=== PATIENT | female | born 1950 | race Caucasian/White ===

== ENCOUNTER 2022-07-01 10:48 | Outpatient (REF) | payer MEDICARE, SELFPAY ==
[2022-07-01 13:58] LABS: MANUAL DIFF FLAG NO
[2022-07-01 14:00] LABS: Appearance Urine HAZY; Color Urine YELLOW; Glucose Urine UA NEG (NEG); Leukocyte Esterase Urine TRACE (NEG); Nitrite Urine NEG (NEG); Urine Blood NEG (NEG); Urine Ketones NEG (NEG); Urine Protein NEG (NEG-TRACE)
[2022-07-01 14:06] LABS: Basophils Absolute Auto 0.1 X10*3/uL (0.0-0.2); Basophils Percent Auto 0.7 % (0-2); Eosinophils Absolute Auto 0.3 X10*3/uL (0.0-0.4); Eosinophils Percent Auto 2.8 % (0-4); Hematocrit 42.8 % (37.0-47.0); Hemoglobin 13.8 g/dl (12.0-16.0); Imm Gran Abs Auto 0.04 X10*3/uL (0.00-0.03); Imm Gran Pct Auto 0.3 % (0.0-0.4); Lymphocytes Absolute Auto 1.8 X10*3/uL (1.2-4.9); Lymphocytes Percent Auto 15.5 % (20-40); Mean Corpuscular HGB Conc 32.2 g/dl (31.0-35.0); Mean Corpuscular Hemoglobin 29.4 pg (27.0-33.0); Mean Corpuscular Volume 91.3 fL (80.0-98.0); Monocytes Absolute Auto 0.9 X10*3/uL (0.1-1.2); Monocytes Percent Auto 8.1 % (2-11); Neutrophils Absolute Auto 8.4 x10*3/uL (2.0-8.3); Neutrophils Percent Auto 72.6 % (45-73); Platelet Count 358 X10*3/uL (160-400); Red Blood Count 4.69 X10*6/uL (4.20-5.50); Red Cell Distribution Width 12.9 % (11.0-16.0); White Blood Count 11.5 X10*3/uL (4.8-10.8)
[2022-07-01 14:15] LABS: Estimated Average Glucose 123 mg/dL; Hemoglobin A1C 149.4037 umol/L; Hemoglobin A1c % 5.9 %
[2022-07-01 14:15] LABS: RBC Urine 0-2 /HPF (0); Squamous Epithelial Cell Urine 2+ /LPF; WBC Urine 0 /HPF (0-4)
[2022-07-01 14:22] LABS: Alanine Aminotransferase 12 U/L (0-31); Albumin Level 4.3 g/dL (3.5-5.0); Alkaline Phosphatase 70 U/L (39-117); Anion Gap 16 (12-20); Aspartate Amino Transferase 20 U/L (5-31); Bilirubin Total 0.3 mg/dL (0.0-1.0); Blood Urea Nitrogen 17 mg/dL (9-16); Calcium 9.8 mg/dL (8.4-10.2); Carbon Dioxide 26 mmol/L (22-29); Chloride 103 mmol/L (96-108); Estimated Glomerular Filt Rate > 60; Glucose Random 121 mg/dL (60-115); Potassium 4.5 mmol/L (3.3-5.1); Sodium 140 mmol/L (135-145); Total Protein 7.4 g/dL (6.5-8.0)
== END 2022-07-01 10:49 | disposition home or self-care (01) ==
LOC: HO.HMGCLDS 10:48
PROVIDERS: PCP Nurse Practitioner Family; Visit Provider Nurse Practitioner Family
DX: Z01.818 Encounter for other preprocedural examination (principal)
CPT/HCPCS: 36415; 80053; 81001; 81003; 83036; 85025

== ENCOUNTER 2022-07-08 11:11 | Outpatient (REF) | payer MEDICARE, SELFPAY ==
[2022-07-08 13:54] LABS: MANUAL DIFF FLAG NO
[2022-07-08 14:02] LABS: Basophils Absolute Auto 0.1 X10*3/uL (0.0-0.2); Basophils Percent Auto 0.7 % (0-2); Eosinophils Absolute Auto 0.3 X10*3/uL (0.0-0.4); Eosinophils Percent Auto 2.5 % (0-4); Hematocrit 41.8 % (37.0-47.0); Hemoglobin 13.5 g/dl (12.0-16.0); Imm Gran Abs Auto 0.05 X10*3/uL (0.00-0.03); Imm Gran Pct Auto 0.4 % (0.0-0.4); Lymphocytes Absolute Auto 1.7 X10*3/uL (1.2-4.9); Lymphocytes Percent Auto 14.5 % (20-40); Mean Corpuscular HGB Conc 32.3 g/dl (31.0-35.0); Mean Corpuscular Hemoglobin 29.6 pg (27.0-33.0); Mean Corpuscular Volume 91.7 fL (80.0-98.0); Monocytes Absolute Auto 0.9 X10*3/uL (0.1-1.2); Monocytes Percent Auto 7.3 % (2-11); Neutrophils Absolute Auto 8.7 x10*3/uL (2.0-8.3); Neutrophils Percent Auto 74.6 % (45-73); Platelet Count 342 X10*3/uL (160-400); Red Blood Count 4.56 X10*6/uL (4.20-5.50); Red Cell Distribution Width 13.1 % (11.0-16.0); White Blood Count 11.7 X10*3/uL (4.8-10.8)
== END 2022-07-08 11:12 | disposition home or self-care (01) ==
LOC: HO.HMGCLDS 11:11
PROVIDERS: PCP Nurse Practitioner Family; Visit Provider Nurse Practitioner Family
DX: Z01.818 Encounter for other preprocedural examination (principal); D72.829 Elevated white blood cell count, unspecified
CPT/HCPCS: 36415; 85025

== ENCOUNTER 2022-07-13 10:50 | Outpatient (REF) | payer MEDICARE, SELFPAY ==
--- NOTE | ~2022-07-13 | XR_ITS ---
EXAMINATION: XR CHEST CLINICAL INFORMATION: Elevated white blood cell count COMPARISON: None TECHNIQUE: 2 views of the chest were obtained. FINDINGS: Cardiac silhouette is normal in size. The lungs are well aerated. There is no lobar consolidation. No pleural effusion or pneumothorax. Scoliotic and degenerative changes of the spine. XR/XR chest 2V IMPRESSION: No acute pulmonary pathology.
[2022-07-13 14:04] LABS: MANUAL DIFF FLAG NO
[2022-07-13 14:22] LABS: Basophils Absolute Auto 0.1 X10*3/uL (0.0-0.2); Basophils Percent Auto 0.8 % (0-2); Eosinophils Absolute Auto 0.3 X10*3/uL (0.0-0.4); Eosinophils Percent Auto 2.3 % (0-4); Hematocrit 45.5 % (37.0-47.0); Hemoglobin 14.6 g/dl (12.0-16.0); Imm Gran Abs Auto 0.04 X10*3/uL (0.00-0.03); Imm Gran Pct Auto 0.3 % (0.0-0.4); Lymphocytes Absolute Auto 2.2 X10*3/uL (1.2-4.9); Lymphocytes Percent Auto 17.1 % (20-40); Mean Corpuscular HGB Conc 32.1 g/dl (31.0-35.0); Mean Corpuscular Hemoglobin 29.1 pg (27.0-33.0); Mean Corpuscular Volume 90.8 fL (80.0-98.0); Mean Platelet Volume 9.9 fL (9.4-12.3); Monocytes Percent Auto 8.3 % (2-11); Neutrophils Absolute Auto 8.9 x10*3/uL (2.0-8.3); Neutrophils Percent Auto 71.2 % (45-73); Platelet Count 378 X10*3/uL (160-400); Red Blood Count 5.01 X10*6/uL (4.20-5.50); White Blood Count 12.6 X10*3/uL (4.8-10.8)
[2022-07-13 14:30] LABS: Alanine Aminotransferase 12 U/L (0-31); Albumin Level 4.5 g/dL (3.5-5.0); Alkaline Phosphatase 69 U/L (39-117); Anion Gap 15 (12-20); Aspartate Amino Transferase 19 U/L (5-31); Bilirubin Total 0.4 mg/dL (0.0-1.0); Blood Urea Nitrogen 21 mg/dL (9-16); Calcium 10.3 mg/dL (8.4-10.2); Carbon Dioxide 29 mmol/L (22-29); Chloride 101 mmol/L (96-108); Estimated Glomerular Filt Rate > 60; Glucose Random 125 mg/dL (60-115); Potassium 4.4 mmol/L (3.3-5.1); Sodium 141 mmol/L (135-145); Total Protein 7.5 g/dL (6.5-8.0)
== END 2022-07-13 10:51 | disposition home or self-care (01) ==
LOC: HO.HMGCX 10:50
PROVIDERS: PCP Nurse Practitioner Family; Visit Provider Nurse Practitioner Family
DX: Z01.818 Encounter for other preprocedural examination (principal); D72.829 Elevated white blood cell count, unspecified
CPT/HCPCS: 36415; 71046; 80053; 85025

== ENCOUNTER 2022-07-22 10:01 | Outpatient (REF) | payer MEDICARE, SELFPAY ==
[2022-07-22 11:22] LABS: MANUAL DIFF FLAG NO
[2022-07-22 11:28] LABS: Basophils Absolute Auto 0.1 X10*3/uL (0.0-0.2); Basophils Percent Auto 0.8 % (0-2); Eosinophils Absolute Auto 0.3 X10*3/uL (0.0-0.4); Hematocrit 41.8 % (37.0-47.0); Hemoglobin 13.9 g/dl (12.0-16.0); Imm Gran Abs Auto 0.03 X10*3/uL (0.00-0.03); Imm Gran Pct Auto 0.3 % (0.0-0.4); Lymphocytes Absolute Auto 2.2 X10*3/uL (1.2-4.9); Lymphocytes Percent Auto 19.7 % (20-40); Mean Corpuscular HGB Conc 33.3 g/dl (31.0-35.0); Mean Corpuscular Hemoglobin 29.6 pg (27.0-33.0); Mean Corpuscular Volume 89.1 fL (80.0-98.0); Mean Platelet Volume 9.6 fL (9.4-12.3); Monocytes Absolute Auto 1.1 X10*3/uL (0.1-1.2); Monocytes Percent Auto 9.4 % (2-11); Neutrophils Absolute Auto 7.5 x10*3/uL (2.0-8.3); Neutrophils Percent Auto 66.8 % (45-73); Platelet Count 336 X10*3/uL (160-400); Red Blood Count 4.69 X10*6/uL (4.20-5.50); Red Cell Distribution Width 12.9 % (11.0-16.0); White Blood Count 11.2 X10*3/uL (4.8-10.8)
[2022-07-22 11:48] LABS: Alanine Aminotransferase 11 U/L (0-31); Albumin Level 4.1 g/dL (3.5-5.0); Alkaline Phosphatase 70 U/L (39-117); Anion Gap 17 (12-20); Aspartate Amino Transferase 16 U/L (5-31); Bilirubin Total 0.3 mg/dL (0.0-1.0); Blood Urea Nitrogen 20 mg/dL (9-16); Calcium 9.3 mg/dL (8.4-10.2); Carbon Dioxide 23 mmol/L (22-29); Chloride 103 mmol/L (96-108); Estimated Glomerular Filt Rate > 60; Glucose Random 120 mg/dL (60-115); Potassium 4.4 mmol/L (3.3-5.1); Sodium 139 mmol/L (135-145); Total Protein 7.1 g/dL (6.5-8.0)
== END 2022-07-22 10:02 | disposition home or self-care (01) ==
LOC: HO.HMGCLDS 10:01
PROVIDERS: PCP Nurse Practitioner Family; Visit Provider Nurse Practitioner Family
DX: D72.829 Elevated white blood cell count, unspecified (principal)
CPT/HCPCS: 36415; 80053; 85025

== ENCOUNTER 2022-08-04 10:17 | Outpatient (REF) | payer MEDICARE, SELFPAY ==
[2022-08-04 11:04] LABS: MANUAL DIFF FLAG NO
[2022-08-04 11:26] LABS: Basophils Absolute Auto 0.1 X10*3/uL (0.0-0.2); Eosinophils Absolute Auto 0.3 X10*3/uL (0.0-0.4); Eosinophils Percent Auto 2.7 % (0-4); Hematocrit 42.8 % (37.0-47.0); Hemoglobin 13.9 g/dl (12.0-16.0); Imm Gran Abs Auto 0.03 X10*3/uL (0.00-0.03); Imm Gran Pct Auto 0.3 % (0.0-0.4); Lymphocytes Absolute Auto 2.3 X10*3/uL (1.2-4.9); Lymphocytes Percent Auto 19.7 % (20-40); Mean Corpuscular HGB Conc 32.5 g/dl (31.0-35.0); Mean Corpuscular Hemoglobin 29.8 pg (27.0-33.0); Mean Corpuscular Volume 91.6 fL (80.0-98.0); Mean Platelet Volume 9.3 fL (9.4-12.3); Monocytes Absolute Auto 0.9 X10*3/uL (0.1-1.2); Monocytes Percent Auto 7.5 % (2-11); Neutrophils Absolute Auto 8.1 x10*3/uL (2.0-8.3); Neutrophils Percent Auto 68.8 % (45-73); Platelet Count 354 X10*3/uL (160-400); Red Blood Count 4.67 X10*6/uL (4.20-5.50); Red Cell Distribution Width 13.4 % (11.0-16.0); White Blood Count 11.7 X10*3/uL (4.8-10.8)
== END 2022-08-04 10:18 | disposition home or self-care (01) ==
LOC: HO.HMGCLDS 10:17
PROVIDERS: PCP Nurse Practitioner Family; Visit Provider Nurse Practitioner Family
DX: D72.829 Elevated white blood cell count, unspecified (principal)
CPT/HCPCS: 36415; 85025

== ENCOUNTER 2022-09-22 11:01 | Outpatient (REF) | payer MEDICARE, SELFPAY ==
[2022-09-22 14:09] LABS: MANUAL DIFF FLAG NO
[2022-09-22 14:17] LABS: Hematocrit 41.3 % (37.0-47.0); Hemoglobin 13.4 g/dl (12.0-16.0); Imm Gran Pct Auto 0.3 % (0.0-0.4); Mean Corpuscular HGB Conc 32.4 g/dl (31.0-35.0); Mean Corpuscular Hemoglobin 30.7 pg (27.0-33.0); Mean Corpuscular Volume 94.5 fL (80.0-98.0); Mean Platelet Volume 9.6 fL (9.4-12.3); Platelet Count 360 X10*3/uL (160-400); Red Blood Count 4.37 X10*6/uL (4.20-5.50); Red Cell Distribution Width 13.9 % (11.0-16.0); White Blood Count 13.3 X10*3/uL (4.8-10.8)
[2022-09-22 14:18] LABS: Basophils Absolute Auto 0.1 X10*3/uL (0.0-0.2); Basophils Percent Auto 0.6 % (0-2); Eosinophils Absolute Auto 0.3 X10*3/uL (0.0-0.4); Eosinophils Percent Auto 2.1 % (0-4); Imm Gran Abs Auto 0.04 X10*3/uL (0.00-0.03); Lymphocytes Absolute Auto 1.9 X10*3/uL (1.2-4.9); Lymphocytes Percent Auto 14.5 % (20-40); Monocytes Absolute Auto 1.1 X10*3/uL (0.1-1.2); Monocytes Percent Auto 8.5 % (2-11); Neutrophils Absolute Auto 9.8 x10*3/uL (2.0-8.3)
[2022-09-22 14:26] LABS: Estimated Average Glucose 128 mg/dL; Hemoglobin A1C 149.3582 umol/L; Hemoglobin A1c % 6.1 %
[2022-09-22 14:38] LABS: Alanine Aminotransferase 17 U/L (0-31); Albumin Level 4.6 g/dL (3.5-5.0); Alkaline Phosphatase 50 U/L (39-117); Anion Gap 17 (12-20); Aspartate Amino Transferase 20 U/L (5-31); Bilirubin Total 0.4 mg/dL (0.0-1.0); Blood Urea Nitrogen 21 mg/dL (9-16); Calcium 10.3 mg/dL (8.4-10.2); Carbon Dioxide 27 mmol/L (22-29); Chloride 103 mmol/L (96-108); Estimated Glomerular Filt Rate > 60; Glucose Random 132 mg/dL (60-115); Potassium 4.7 mmol/L (3.3-5.1); Sodium 142 mmol/L (135-145); Total Protein 7.5 g/dL (6.5-8.0)
[2022-09-22 14:48] LABS: TSH reflex Free T4 1.21 uIU/mL (0.32-4.0)
== END 2022-09-22 11:02 | disposition home or self-care (01) ==
LOC: HO.HMGCLDS 11:01
PROVIDERS: PCP Nurse Practitioner Family; Visit Provider Nurse Practitioner Family
DX: Z01.818 Encounter for other preprocedural examination (principal); D72.829 Elevated white blood cell count, unspecified
CPT/HCPCS: 36415; 80053; 83036; 84443; 85025

== ENCOUNTER 2023-10-23 12:09 | Outpatient (AMB) | payer MEDICARE, SELFPAY ==
[2023-10-23 12:32] VITALS: BP 136/88; PULSE 111; O2SAT 95
--- NOTE | 2023-10-23 12:32 | A.OFFPC_ITS ---
Vital Signs 10/23/23 12:32 Height 5 ft 11 in Weight 215 lb 4 oz BMI 30.0 BP 136/88 Blood Pressure Location Rt brachial Position Sitting Pulse 111 H Pulse Source Pulse Oximeter Pulse Oximetry (%) 95 Oxygen Delivery Method Room Air Intake Visit Reasons: Est Care/transfer from [facility] Allergies codeine Allergy (Unknown, Verified 10/30/23 16:27) SOB Codeine Sulfate Allergy (Unknown, Uncoded 10/30/23 16:27) SOB Medication List - Last Reconciled 10/30/23 by JAMES Melvin blood sugar diagnostic (FreeStyle Lite Strips) Test blood sugar 3 times per day blood-glucose meter (FreeStyle Lite Meter kit) As directed diclofenac sodium 1% (Arthritis Pain (diclofenac)) 2 grams topical QID insulin glargine (Lantus Solostar U-100 Insulin) 24 units (0.24 mL) subcut QAM insulin lispro (Humalog KwikPen (U-100) Insulin) 1 sliding scale dose subcut USEASDIRECTD ipratropium bromide 17 mcg/actuation (Atrovent HFA) 2 puffs inhalation Q8H lancets (FreeStyle Lancets) Test blood sugar 3 times per day metformin 1,000 mg PO BID Tobacco use date assessed: 10/23/23 Fall risk assessment: 1 Fall in past year Last assessed Fall Risk: 10/23/23 Dental Screening Dental Screen Date: 10/23/23 Did you have a dental visit in the last 12 months?: No Did you have a dental problem in the last 6 months where you did not have access to dental care?: No Was dental information given to patient?: No HPI HPI Comments History of Present Illness Details The patient is a 72-year-old female in today to establish care. She has a past medical history significant for diabetes type 2 uncontrolled, COPD, arthritis, lumbar disc herniation, and glaucoma. She has a history of malignant neoplasm of the right female breast and infiltrating ductal carcinoma of the right breast. Her surgical history includes partial hysterectomy, and right breast lumpectomy in 2024. Her most recent mammogram was in June of 2015 which was negative. Her last bone density scan was and June of 2014. She currently has a visiting nurse that assists the patient with foot care monthly. This patient would like to get eye surgery however, likely needs to lower blood glucose in order to do that. The patient is in office A1c was 12.8, so the patient states that her sugars at home are near and around 120. Patient is getting chemistry A1c to verify in office results, patient states she will then consider going on a 2nd medication for her diabetes. Patient has a complaint of bilateral knee pain, which she states is a chronic issue but has gotten progressively worse over the past few months. Patient has no history of knee x-ray. Will order bilateral knee x-ray to evaluate for osteoarthritis and refer if necessary. [facility] Medical History (Updated 10/30/23 @ 16:30 by JAMES Melvin) Nicotine dependence, cigarettes, uncomplicated History of right breast cancer Wound of right foot Depression, major, recurrent Rheumatoid arthritis Renal calculi Peptic ulcer COPD (chronic obstructive pulmonary disease) Alcohol abuse Uncontrolled diabetes mellitus PVD (peripheral vascular disease) Surgical History (Updated 12/01/22 @ 12:30 by Melody Atkins PA-C) History of angioplasty History of lumpectomy of right breast History of amputation of right great toe History of partial hysterectomy Social History Housing: Apartment Patient Tobacco Use Status: Current everyday Tobacco user Cigarette Packs Per Day: 2 e-Cigarette/Vaping Use: Never Used Second Hand Smoke Exposure: No service: No Current occupational status: retired Cognitive needs: No Hearing needs: No Vision needs: No Questionnaire AUDIT C Alcohol Use Questionnaire (AUDIT-C) 1. How often do you have a drink containing alcohol?: Never 3. How often do you have six or more drinks on one occasion?: Never Total Score: 0 Score Reviewed/Action Taken: Yes Review of Systems Const Details: Constitutional : No Weight loss, No Fever, No Chills, No Fatigue, No Malaise ENT/Mouth : No sore throat, No Rhinorrhea Eyes: No Eye Pain, No Swelling, No Redness Cardiovascular : No Chest Pain, No SOB, No Orthopnea, No Edema, No Palpitations Respiratory : No wheeze Gastrointestinal : No Nausea, No Vomiting, No Diarrhea, No Constipation, No abdominal Pain, No Hematochezia, No Melena Genitourinary : No Dysuria, Admits Urinary Frequency, No Hematuria, Musculoskeletal : Admits joint pain. Skin : No Skin Lesions, No rash Neuro : Neuropathy of feet. Psych : No Anxiety/Panic, No Depression All other systems reviewed and are negative Physical exam (Primary Care) Vital Signs: Last Vital Signs Pulse 111 H 10/23/23 12:32 BP 136/88 10/23/23 12:32 Pulse Ox 95 10/23/23 12:32 Oxygen Delivery Method Room Air 10/23/23 12:32 Care Plan Goal for BP management: Patient had pulse recheck prior to leaving. Beats per minute equaled 95. BMI result Body Mass Index 30.0 Tobacco/Smoking Status: Tobacco use Status Tobacco use date assessed 10/23/23 10/23/23 12:37 Patient Tobacco Use Status Current everyday Tobacco 10/23/23 12:32 e-Cigarette/Vaping Use Never Used 10/23/23 12:32 Const Other: Appearance: Alert.? Oriented X3.? No acute distress.? CVS: Normal heart rate and rhythm.? Pulses normal.?Systolic murmurr. Respiratory: No respiratory distress.? Breath sounds normal.? Skin: Some dryness and scaling on bilateral feet. Sensate to monofiliment. Neuro: Oriented X 3.? No motor deficit.? No sensory deficit. CN 2-12 intact General: cooperative and no acute distress Results AMB Hemoglobin A1c AMB Hemoglobin A1c 12.8 % Last Edit by Gemma Vo CMA on 10/23/23 13:32 Results Reviewed Results Reviewed: Laboratory Last Values Hgb A1c (Clinic) 12.8 % (4.0-6.0) H 10/23/23 13:29 Will call patient to review results. Assessment and Plan Assessment & Plan (1) Uncontrolled diabetes mellitus: Comment: Patient is in office A1c was 12.8. Patient states that she wants to get A1c drawn by the lab and will consider adding therapy to address her hyperglycemia. Currently she is prescribed 1000 mg of metformin b.i.d but the patient has not been taking consistently. patient has been educated that she should go on either an Johnny or an Arb for kidney protection to which she has declined. Was also dis cussed the patient should be taken atorvastatin for cholesterol and which she wants to wait to see what her cholesterol and lipid levels are. She will be started on 24 units of Lantus and insulin lispro with sliding scale with blood sugars to be taken prior to all meals. She has declined SG LT 2 inhibitor as she does not want to take any more oral medications. Patient has been instructed to take her blood glucose levels at home. She has been instructed that she should take blood pressure measurements at home. Patient intends to get eye surgery in the future, will likely need to get her bl ood glucose levels in control in order to do that. Patient has been started 24 units of Lantus and insulin with a sliding scale. Patient has been referred to senior health educator and community navigator nurse. Code(s): E11.65 - Type 2 diabetes mellitus with hyperglycemia Qualifiers: Diabetes mellitus type: type 2 Glycemic state: with hyperglycemia Qualified Code(s): E11.65 - Type 2 diabetes mellitus with hyperglycemia (2) Osteoarthritis: Comment: Will obtain x-ray of bilateral knees. Patient states that she has been using Tylenol for pain relief, as she just recently weaned herself off of tramadol. Patient has been educated side effects of this medication, and only take it as directed. Patient will be prescribed diclofenac topical gel to apply as needed for pain. Code(s): M19.90 - Unspecified osteoarthritis, unspecified site Qualifiers: Laterality: bilateral Osteoarthritis location: knee Osteoarthritis type: unspecified Qualified Code(s): M17.0 - Bilateral primary osteoarthritis of knee Plan Patient will follow-up 3 months. Will get back to patient with lab results. Labs will likely confirm what is already suspected, which is that the patient needs to go on insulin to help control diabetes. Patient has declined influenza vaccine. States she is still unsure about whether she will get the COVID vaccine. Patient has been educated that with her history of COPD and uncontrolled diabetes she is a high risk candidate and should seriously consider getting vaccines. Orders: Orders AMB Hemoglobin A1c 10/23/23 Z13.9 - Encounter for screening, unspecified Complete Blood Count Auto Diff 10/23/23 E11.65 - Type 2 diabetes mellitus with hyperglycemia Lipid Panel 10/23/23 E11.65 - Type 2 diabetes mellitus with hyperglycemia Microalbumin 24 hr Urine 10/23/23 E11.65 - Type 2 diabetes mellitus with hyperglycemia UA CC w/rflx Micro + Cult 10/23/23 E11.65 - Type 2 diabetes mellitus with hyperglycemia Hemoglobin A1c 10/23/23 E11.65 - Type 2 diabetes mellitus with hyperglycemia AMB EKG-In Office 10/23/23 R00.0 - Tachycardia, unspecified Comprehensive Met. Panel 10/23/23 E11.65 - Type 2 diabetes mellitus with hyperglycemia TSH reflex Free T4 10/23/23 E11.65 - Type 2 diabetes mellitus with hyperglycemia XR knee RT 2V 10/23/23 M19.90 - Unspecified osteoarthritis, unspecified site XR knee LT 2V 10/23/23 M19.90 - Unspecified osteoarthritis, unspecified site MM tomosynthesis screening BI 10/23/23 Z78.0 - Asymptomatic menopausal state XR DEXA axial skeleton 10/23/23 Z78.0 - Asymptomatic menopausal state Medications: New diclofenac sodium 1% (Arthritis Pain (diclofenac)) 2 grams topical QID 100 grams 0RF insulin glargine (Lantus Solostar U-100 Insulin) 24 units (0.24 mL) subcut QAM 15 mL 0RF blood-glucose meter As directed 1 ea 0RF lancets (OneTouch Delica Plus Lancet) As directed 100 ea 0RF insulin lispro (Humalog KwikPen (U-100) Insulin) 1 sliding scale dose subcut USEASDIRECTD 15 mL 0RF blood sugar diagnostic As directed 10 ea 0RF Changed From ipratropium bromide 17 mcg/actuation 2 puffs inhalation Q8H 12.9 grams 2RF To ipratropium bromide 17 mcg/actuation (Atrovent HFA) 2 puffs inhalation Q8H 12.9 grams 2RF Review Flu Vaccine not done: patient reason Coding Level of Care Code Est Pt Level 4 (56562) Diagnoses Uncontrolled type 2 diabetes mellitus with hyperglycemia E11.65 Diabetes mellitus type: type 2 Glycemic state: with hyperglycemia Osteoarthritis of both knees, unspecified osteoarthritis type M17.0 Laterality: bilateral Osteoarthritis location: knee Osteoarthritis type: unspecified Time Spent (min) 30
== END 2023-10-23 15:00 | disposition home or self-care (01) ==
PROVIDERS: PCP Nurse Practitioner Family; Visit Provider Nurse Practitioner Primary Care
DX: E11.65 Type 2 diabetes mellitus with hyperglycemia (principal); M17.0 Bilateral primary osteoarthritis of knee
CPT/HCPCS: 83036; 99214

== ENCOUNTER 2023-10-23 13:34 | Outpatient (REF) | payer MEDICARE, SELFPAY ==
[2023-10-23 15:57] LABS: MANUAL DIFF FLAG NO
[2023-10-23 16:25] LABS: Basophils Absolute Auto 0.1 X10*3/uL (0.0-0.2); Basophils Percent Auto 0.6 % (0-2); Eosinophils Absolute Auto 0.2 X10*3/uL (0.0-0.4); Eosinophils Percent Auto 1.1 % (0-4); Hematocrit 43.8 % (37.0-47.0); Hemoglobin 14.6 g/dl (12.0-16.0); Imm Gran Abs Auto 0.04 X10*3/uL (0.00-0.03); Imm Gran Pct Auto 0.3 % (0.0-0.4); Lymphocytes Absolute Auto 1.9 X10*3/uL (1.2-4.9); Lymphocytes Percent Auto 14.4 % (20-40); Mean Corpuscular HGB Conc 33.3 g/dl (31.0-35.0); Mean Corpuscular Hemoglobin 30.9 pg (27.0-33.0); Mean Corpuscular Volume 92.6 fL (80.0-98.0); Mean Platelet Volume 10.3 fL (9.4-12.3); Monocytes Absolute Auto 0.9 X10*3/uL (0.1-1.2); Neutrophils Percent Auto 76.6 % (45-73); Platelet Count 353 X10*3/uL (160-400); Red Blood Count 4.73 X10*6/uL (4.20-5.50); Red Cell Distribution Width 12.1 % (11.0-16.0); White Blood Count 13.1 X10*3/uL (4.8-10.8)
[2023-10-23 16:34] LABS: TSH reflex Free T4 1.28 uIU/mL (0.32-4.0)
[2023-10-23 18:20] LABS: Alanine Aminotransferase 21 U/L (0-31); Albumin Level 4.3 g/dL (3.5-5.0); Alkaline Phosphatase 64 U/L (39-117); Anion Gap 15 (12-20); Aspartate Amino Transferase 22 U/L (5-31); Bilirubin Total 0.4 mg/dL (0.0-1.0); Blood Urea Nitrogen 22 mg/dL (9-16); Calcium 10.4 mg/dL (8.4-10.2); Carbon Dioxide 28 mmol/L (22-29); Chloride 98 mmol/L (96-108); Cholesterol 232 mg/dL (<200); Estimated Glomerular Filt Rate > 60; Glucose Random 405 mg/dL (60-115); HDL Cholesterol 41 mg/dL (>40); LDL Cholesterol Calculated 151 mg/dL (<100); Potassium 4.6 mmol/L (3.3-5.1); Sodium 136 mmol/L (135-145); Total Protein 7.7 g/dL (6.5-8.0); Triglycerides 202 mg/dL (<150)
[2023-10-24 07:33] LABS: Estimated Average Glucose 303 mg/dL; Hemoglobin A1c % 12.2 % (<6.0)
== END 2023-10-23 13:35 | disposition home or self-care (01) ==
LOC: HO.HMGCLDS 13:34
PROVIDERS: PCP Nurse Practitioner Primary Care; Visit Provider Nurse Practitioner Primary Care
DX: E11.65 Type 2 diabetes mellitus with hyperglycemia (principal); M19.90 Unspecified osteoarthritis, unspecified site
CPT/HCPCS: 36415; 80053; 80061; 83036; 84443; 85025